=== PATIENT | female | born 1955 | race Caucasian/White ===

== ENCOUNTER 2023-03-24 22:33 | Emergency (ER) | payer SELFPAY ==
[~2023-03-24] VITALS: Ht 154.9 cm; Wt 66.2 kg
[2023-03-24 22:55] VITALS: BP 176/105; PULSE 81; RESP 17; TEMP 98; O2SAT 98
[2023-03-25] MEDS ORDERED: NAPR-54 PO (03:26)
[2023-03-25 03:32] VITALS: BP 160/95; PULSE 78; RESP 18; TEMP 98; O2SAT 98
== END 2023-03-25 03:34 | disposition home or self-care (01) ==
LOC: MED 22:33
DX: K11.20 Sialoadenitis, unspecified (principal); I10 Essential (primary) hypertension; Z79.899 Other long term (current) drug therapy
CPT/HCPCS: 99282